=== PATIENT | female | born 1985 | race American Indian/Alaskan Native ===

== ENCOUNTER 2020-12-28 01:12 | Emergency (ER) | payer OTHER ==
[~2020-12-28] VITALS: Ht 172.7 cm; Wt 95.5 kg
[2020-12-28 01:35] LABS: COLLECTION METHOD CLEAN CATCH
[2020-12-28 01:44] LABS: PH 5 (5-8); URINE APPEARANCE Clear; URINE BACTERIA None Seen /hpf; URINE BILIRUBIN Negative (NEGATIVE); URINE BLOOD 1+ (NEGATIVE); URINE COLOR Red; URINE GLUCOSE Negative (NEGATIVE); URINE KETONE Negative (NEGATIVE); URINE LEUKOCYTE ESTERASE Negative (NEGATIVE); URINE NITRATE Positive (NEGATIVE); URINE PROTEIN(semi-quant) Negative (NEGATIVE)
[2020-12-28] MEDS ORDERED: MACROBID 1100 MG/CAP PO (02:31)
[2020-12-28 02:48] VITALS: BP 155/97; PULSE 70; TEMP 97.3
== END 2020-12-28 02:48 | disposition home or self-care (01) ==
LOC: COL.ER 01:12
PROVIDERS: Emergency Medicine
DX: N39.0 Urinary tract infection, site not specified (principal); F17.210 Nicotine dependence, cigarettes, uncomplicated; Z32.02 Encounter for pregnancy test, result negative